=== PATIENT | female | born 1945 | race Caucasian/White ===

== ENCOUNTER 2020-09-24 10:16 | Inpatient (IN) | payer OTHER ==
[~2020-09-24] VITALS: Ht 162.6 cm; Wt 53.2 kg
[2020-09-24 10:20] VITALS: BP 120/68
[2020-09-24] MEDS ORDERED: ALLOPURINOL 10100 M1 PO (10:27)
[2020-09-24] MEDS ORDERED: ALPHA LIPOIC A600 M1 PO (10:28)
[2020-09-24] MEDS ORDERED: CALCIUM + VITA1 EACH PO (10:29)
[2020-09-24] MEDS ORDERED: ASA81BEC PO (10:29)
[2020-09-24] MEDS ORDERED: ESTRADIOL CREAM (10:30)
[2020-09-24] MEDS ORDERED: IRON325 M1 PO (10:31)
[2020-09-24] MEDS ORDERED: FLONASE 0.05%50 MCG NARES (10:32)
[2020-09-24] MEDS ORDERED: LACTOBACILLUS (10:33)
[2020-09-24] MEDS ORDERED: HYDRALAZINE 2525 M1 PO (10:33)
[2020-09-24] MEDS ORDERED: ISOSORBIDE DINI30 MG PO (10:33)
[2020-09-24] MEDS ORDERED: LEVOXYL137 MCG PO (10:34)
[2020-09-24] MEDS ORDERED: MULTIPLE VITAM1 EAC2 PO (10:34)
[2020-09-24] MEDS ORDERED: MYRBETRIQ25 MG PO (10:34)
[2020-09-24] MEDS ORDERED: TOPROL XL100 MG PO (10:34)
[2020-09-24] MEDS ORDERED: RAZADYNE 8 MG PO (10:36)
[2020-09-24] MEDS ORDERED: OMEPRAZOLE 20 M20 M1 PO (10:36)
[2020-09-24] MEDS ORDERED: [UNRECOGNIZED DRUG - OTHER] PO (10:36)
[2020-09-24] MEDS ORDERED: NYSTATIN1 EA10 (10:36)
[2020-09-24] MEDS ORDERED: RAPAMUNE2 MG PO (10:36)
[2020-09-24] MEDS ORDERED: SPIRONOLACTONE25 MG PO (10:37)
[2020-09-24] MEDS ORDERED: XARELTO2.5 MG PO (10:37)
[2020-09-24] MEDS ORDERED: VITAMIN D3125 MC1 PO (10:37)
[2020-09-24] MEDS ORDERED: TACROLIMUS0.5 MG PO (10:37)
[2020-09-24 10:51] LABS: HEMATOCRIT 36.7 % (37.0-47.0); HEMOGLOBIN 11.4 gm/dL (12.0-15.0); MCH 29.2 pg (26.0-34.0); MCHC 31.1 g/dL (28.0-37.0); MCV 93.8 fL (80.0-100.0); MPV 10.1 fl. (7.2-11.1); NUCLEATED RBCS 0 /100WBC; PLATELET COUNT* 193 thou/uL (150-400); RBC 3.91 mil/uL (4.20-5.00); RDW-CV 16.1 % (10.5-14.5); WBC 7.2 thou/uL (4.0-11.0)
[2020-09-24 11:06] LABS: APTT 22.5 Seconds (25.0-31.3); INR 1.2; PROTIME 12.2 Seconds (9.20-11.50)
[2020-09-24 11:16] LABS: CALCIUM 8.8 mg/dL (8.5-10.1); CREATININE 5.4 mg/dL (0.6-1.3); DIRECT BILIRUBIN 0.2 mg/dL (<0.1-0.3); MAGNESIUM 2.9 mg/dL (1.8-2.4); POTASSIUM 5.5 mmol/L (3.5-5.1); TOTAL BILIRUBIN 0.3 mg/dL (<0.1-1.0)
[2020-09-24 11:23] LABS: ABSOLUTE LYMPHOCYTES 0.6 thou/uL (0.8-5.3); ABSOLUTE MONOCYTES 0.1 thou/uL (0.0-1.2); ABSOLUTE NEUTROPHILS 6.4 thou/uL (1.6-8.1); PLATELET ESTIMATE ADEQUATE
[2020-09-24 11:36] LABS: BE -13.5 mmol/L (-2 to +3); PCO2 23.8 mmHg (35.0-45.0)
[2020-09-24 11:38] LABS: PO2 297.3 mmHg (75.0-100.0); pH 7.296 (7.340-7.450)
[2020-09-24 11:41] LABS: URINE BILIRUBIN NEGATIVE (Negative); URINE BLOOD TRACE (Negative); URINE CLARITY CLOUDY; URINE COLOR YELLOW; URINE GLUCOSE-RANDOM NEGATIVE (Negative); URINE KETONES NEGATIVE (Negative); URINE LEUKOCYTES 3+ (Negative); URINE NITRITE NEGATIVE (Negative); URINE PROTEIN 2+ (Negative); URINE SPECIFIC GRAVITY 1.015 (1.005-1.030); URINE UROBILINOGEN 0.2 E.U./dl (0.2-1.0)
[2020-09-24 11:47] LABS: SQUAMOUS 0-3 Few /LPF (0-3); URINE RBC None Seen /HPF (0-2); URINE WBC >25 Many /HPF (0-5); WBC CLUMPS Few (None Seen)
[2020-09-24 11:47] LABS: ALBUMIN 2.3 g/dL (3.4-5.0)
[2020-09-24 11:48] LABS: BACTERIA >30 Many /HPF (None Seen); MUCUS 0-3 Light strn/LPF (None Seen)
[2020-09-24 11:49] LABS: CRYSTALS None Seen /LPF (None Seen); FINE GRANULAR CASTS 0-3 Few /LPF (None Seen)
--- NOTE | 2020-09-24 12:25 | NUR ---
RIGHT BASILIC VESSEL ACCESSED FOR 5 INDIAN DUAL LUMEN PICC. LINE PRE-TRIMED TO 35 CM AND ADVANCED TO THE ZERO TOÑITO WITH NO RESISTANCE MET. UPPER ARM CIRCUMFERENCE ABOVE INSERTION SITE=8 1/2". SHERLOCK MAGNET AND 3CG CONFIRMATION OF TIP TERMINATION AT THE CAVOATRIAL JUNCTION APPRECIATED. GUIDEWIRE REMOVED, LINE FLUSHED AND INSERTION SITE DRESSED. REPORT GIVEN TO BECK RAMACHANDRAN.
--- NOTE | 2020-09-24 14:21 | EKG ---
[place] [address] ELECTROCARDIOGRAM REPORT Name: OLIVERJILL GERMAN Room: [place] [address] ADM IN ..#: [id number] Admission: 09/24/20 Attend Phys: Lazaro Gray, Discharge: Date of : 43 Date of Service: 09/24/20 1031 Report #: [id number] THIS REPORT FOR: //name// [facility] ED Test Date: 2020-09-24 Test Time: 10:31:12 Pat Name: JILL BOYD Department: Room: [facility] Gender: F Engineer Technical Staff: : [id number] Requested By: Phi Iverson Order Number: [id number] MD: Skyler Estrada Measurements Intervals [place] Rate: 79 P: 70 CO: 52 QRS: -12 QRSD: 141 T: QT: 437 QTc: 502 Interpretive Statements Atrial-sensed ventricular-paced complexes No further analysis attempted due to paced rhythm No previous ECG available for comparison Electronically Signed On 09-24-2020 14:21:10 LADLE PATCHER by Skyler Estrada [email or web address] <ELECTRONICALLY SIGNED> By: Skyler Estrada MD, [facility] 09/24/20 1421 1031 1031 Skyler Estrada MD, [facility] /EPI
[2020-09-24 15:52] VITALS: BP 111/46
[2020-09-24 16:54] LABS: CALCIUM 7.5 mg/dL (8.5-10.1)
[2020-09-24 16:58] VITALS: BP 118/61
[2020-09-24 17:16] LABS: CREATININE 4.4 mg/dL (0.6-1.3); POTASSIUM 4.3 mmol/L (3.5-5.1)
[2020-09-24 20:49] VITALS: BP 126/88
[2020-09-25] VITALS: BP 119/61
[2020-09-25 04:00] VITALS: BP 119/70
--- NOTE | 2020-09-25 07:26 | NUR ---
PT IS ABLE TO COMMUNICATE HER NEEDS TO STAFF WITH SOME DIFFICULTY; SHE CAN ANSWER Y/N QUESTIONS WITH A HEAD NOD, BUT IS NOT ABLE TO VERBALIZE RESPONSES AT THIS TIME; MDs ARE AWARE. SHE HAS DENIED THE NEED FOR PAIN MEDICATION UP TO THIS TIME. Q4H SERIUM SODIUM CHECKS MAINTAINED PER MD ORDER. PT NOT EATING OR TAKING PILLS AT THIS TIME. GROVE HAS BEEN PATENT UP TO 0700 THIS MORNING.
[2020-09-25 08:00] VITALS: BP 117/68
[2020-09-25 09:16] LABS: CALCIUM 7.3 mg/dL (8.5-10.1); CREATININE 3.8 mg/dL (0.6-1.3); POTASSIUM 4.2 mmol/L (3.5-5.1)
--- NOTE | 2020-09-25 12:37 | NUR ---
PER RN, PT HAS .
--- NOTE | 2020-09-25 20:56 | NUR ---
I ASSUMED CARE OF THE PATIENT AT 0700. SHE IS NONVERBAL AND SHAKES HER HEAD APPROPRIATELY FOR YES/NO QUESTIONS. BED IS IN THE LOW LOCKED POSITION AND CALL LIGHT IS IN REACH. HOURLY ROUNDING IS COMPLETED AND PATIENT NEEDS ARE MET. NEW ORDERS WERE OBTAINED TO PLACE AND NG TUBE FOR MEDS. PAIN IS DENIED. SHE IS REPOSITIONED EVERY 2 HOURS. CRITICAL SODIUM WAS REPORTED TO DR VALENCIA. COLLABORATION BETWEEN PHYSICAINS OCCURRED. WHILE AT THE PATIENT BEDSIDE TO PLACE THE NG, SHE STOPPED BREATHING. A RAPID RESPONSE WAS CALLED AND PHYSICIAN WAS NOTIFIED. WAS CONTACTED AND HE CAME TO THE BEDSIDE AFTER PATIENT WAS CLEANED UP AND REQUESTED THAT I CALLED THE HOME. PACKET AND MTN PAPERWORK WAS COMPLETED. HOME PICKED UP PATIENT AT 1400, TOD WAS 1058.
--- NOTE | 2020-09-25 21:01 | NUR ---
SPOKE WITH TOSHA AT 1130. REFERENCE NUMBER [id number]. PERMISSION WAS GRANTED TO RELEASE BODY TO THE HOME.
== END 2020-09-25 10:58 | DRG 871 ==
LOC: M.ERS 10:16 → M.2W 12:46 → M.TBA-ER 12:46 → M.2W 16:04
PROVIDERS: Emergency Medicine; Internal Medicine Nephrology; ADMIT Internal Medicine; ATTEND Internal Medicine
DX: A41.9 Sepsis, unspecified organism (principal); N17.0 Acute kidney failure with tubular necrosis; G92 Toxic encephalopathy; E43 Unspecified severe protein-calorie malnutrition; I42.9 Cardiomyopathy, unspecified; I13.0 Hypertensive heart and chronic kidney disease with heart failure and stage 1 through stage 4 chronic kidney disease, or unspecified chronic kidney disease; E87.0 Hyperosmolality and hypernatremia; N30.01 Acute cystitis with hematuria; N18.4 Chronic kidney disease, stage 4 (severe); Z94.4 Liver transplant status; E03.9 Hypothyroidism, unspecified; Z20.822 Contact with and (suspected) exposure to COVID-19; F03.90 Unspecified dementia, unspecified severity, without behavioral disturbance, psychotic disturbance, mood disturbance, and anxiety; G62.9 Polyneuropathy, unspecified; K21.9 Gastro-esophageal reflux disease without esophagitis; M10.9 Gout, unspecified; M19.90 Unspecified osteoarthritis, unspecified site; I50.9 Heart failure, unspecified; R40.1 Stupor; E86.0 Dehydration; R09.2 Respiratory arrest; E87.5 Hyperkalemia; Z66 Do not resuscitate; Z86.16 Personal history of COVID-19; Z95.810 Presence of automatic (implantable) cardiac defibrillator; Z87.01 Personal history of pneumonia (recurrent); Z88.8 Allergy status to other drugs, medicaments and biological substances; Z88.1 Allergy status to other antibiotic agents; Z91.013 Allergy to seafood